=== PATIENT | female | born 1985 | race African-American/Black ===

== ENCOUNTER 2016-04-23 13:54 | Emergency (ER) | payer OTHER ==
[~2016-04-23] VITALS: Ht 157.5 cm; Wt 115.0 kg
[~2016-04-23 13:54] MED LIST: ADVIL,NUPRIN,M200 MG PO; ATIVAN1 MG PO; GLUCOPHAGE500 MG PO; LISINOPRIL20 MG PO; MEDROL DOSEPAK4 MG PO; NOHOMEMEDS; PRINIVIL20 MG PO; TRIAMCINOLONE A15 GM TP
[2016-04-23 15:17] LABS: HEMATOCRIT 40.9 % (36.0-46.0); MCH 30.3 PG (29.0-34.0); MCV 91.9 FL (83-99); PLATELET COUNT 228 K/uL (156-360); RBC DIS.WIDTH-CV 14.8 % (11.8-14.6); RBC DIS.WIDTH-SD 47.6 % (39-53); RED BLOOD COUNT 4.45 M/uL (3.80-5.20); WHITE BLOOD COUNT 14.4 K/uL (4.1-10.2)
[2016-04-23 15:28] LABS: CHLORIDE 104 mEq/L (99-109); D-DIMER ELISA 3.06 mg/L FEU (< 0.57); POTASSIUM 4.1 mEq/L (3.7-5.4); SODIUM 141 mEq/L (136-147)
[2016-04-23 15:31] LABS: GLUCOSE 232 mg/dL (70-99)
[2016-04-23 15:32] LABS: ANION GAP 9 MEQ/L (2-14); TOTAL BILIRUBIN 0.4 mg/dL (0.0-1.0)
[2016-04-23 15:34] LABS: ALKALINE PHOSPHATASE 87 IU/L (3-129); GFR ESTIMATE (CALCULATED) > 59 mL/min/
[2016-04-23 15:35] LABS: UREA NITROGEN (BUN) 6 mg/dL (9-23)
[2016-04-23 15:37] LABS: TROP-I INTERPRETATION NEGATIVE; TROPONIN-I < 0.01 ng/mL (0.0-0.30)
[2016-04-23 15:46] LABS: ADD MIUA? YES; BILIRUBIN NEGATIVE; BLOOD NEGATIVE; COLOR YELLOW ((YELLOW)); GLUCOSE (STRIP) >=500; KETONES 5; LEUKOCYTES NEGATIVE; NITRITE NEGATIVE; PROTEIN (STRIP) 100; SPECIFIC GRAVITY 1.035 (1.000-1.030); UROBILINOGEN 0.2 MG/DL (0.2-1.0)
[2016-04-23 15:52] LABS: BACTERIA RARE /HPF; EPITHELIAL CELLS 1+ /HPF; MUCUS 2+ /LPF; RED BLOOD CELLS 0-5 /HPF (0-5); WHITE BLOOD CELLS 0-5 /HPF (0-5)
[2016-04-23 16:06] LABS: QUANTITATIVE HCG < 4.0 MIU/ML
[2016-04-23 17:52] LABS: TROP-I INTERPRETATION NEGATIVE; TROPONIN-I < 0.01 ng/mL (0.0-0.30)
[2016-04-23] MEDS ORDERED: LEVAQUIN750 MG PO (20:54)
[2016-04-23] MEDS ORDERED: VENTOLIN HFA18 GM IH (21:03)
[2016-04-23 21:31] VITALS: BP 156/91
== END 2016-04-23 21:32 | disposition left against medical advice (07) ==
LOC: EME 13:54
PROVIDERS: Physician Assistant Medical
DX: J18.9 Pneumonia, unspecified organism (principal); R09.02 Hypoxemia; E11.9 Type 2 diabetes mellitus without complications; I10 Essential (primary) hypertension; F17.200 Nicotine dependence, unspecified, uncomplicated
CPT/HCPCS: 71020; 71275; 80053; 81003; 84484; 84702; 85027; 85379; 93005; 94640; 99281; 99285; J1956; J2060

== ENCOUNTER 2017-04-11 21:00 | Inpatient (IN) | payer OTHER ==
[~2017-04-11] VITALS: Ht 157.5 cm; Wt 123.0 kg
[~2017-04-11 21:00] MED LIST changes: +LEVAQUIN750 MG PO; +LISINOPRIL10 MG PO; -LISINOPRIL20 MG PO; +VENTOLIN HFA18 GM IH
[2017-04-11 21:33] LABS: HEMATOCRIT 47.1 % (36.0-46.0); HEMOGLOBIN 15.2 G/DL (11.9-15.5); MCHC 32.3 G/DL (30.0-36.0); MCV 89.9 FL (83-99); RBC DIS.WIDTH-CV 16.5 % (11.8-14.6); RBC DIS.WIDTH-SD 53.5 % (39-53); RED BLOOD COUNT 5.24 M/uL (3.80-5.20); WHITE BLOOD COUNT 10.7 K/uL (4.1-10.2)
[2017-04-11 21:44] LABS: ALBUMIN 3.7 g/dL (3.2-4.8); CHLORIDE 104 mEq/L (99-109); POTASSIUM 4.8 mEq/L (3.7-5.4); SODIUM 139 mEq/L (136-147)
[2017-04-11 21:46] LABS: GLUCOSE 168 mg/dL (70-99); TOTAL PROTEIN 6.9 g/dL (6.4-8.3)
[2017-04-11 21:48] LABS: TOTAL BILIRUBIN 0.7 mg/dL (0.0-1.0)
[2017-04-11 21:50] LABS: ALKALINE PHOSPHATASE 98 IU/L (3-129); CREATININE 0.8 mg/dL (0.6-1.3); GFR ESTIMATE (CALCULATED) > 59 mL/min/
[2017-04-11 21:51] LABS: UREA NITROGEN (BUN) 11 mg/dL (9-23)
[2017-04-11 21:52] LABS: AST (GOT) 25 IU/L (2-34)
[2017-04-11 21:53] LABS: ALT (GPT) 13 IU/L (3-49)
[2017-04-11 22:00] LABS: QUANTITATIVE HCG < 4.0 MIU/ML
[2017-04-11 22:05] LABS: APPEARANCE SL.HAZY ((CLEAR)); BILIRUBIN NEGATIVE; BLOOD NEGATIVE; COLOR YELLOW ((YELLOW)); GLUCOSE (STRIP) NEGATIVE; KETONES NEGATIVE; LEUKOCYTES NEGATIVE; NITRITE NEGATIVE; PROTEIN (STRIP) >=500; SPECIFIC GRAVITY 1.029 (1.000-1.030); UROBILINOGEN 0.2 MG/DL (0.2-1.0)
[2017-04-11 22:07] LABS: PLAT.SUFFICIENCY ADEQUATE; PLATELET COUNT 258 K/uL (156-360)
[2017-04-11 22:14] LABS: BACTERIA NONE SEEN /HPF; EPITHELIAL CELLS 2+ /HPF; MUCUS 3+ /LPF; RED BLOOD CELLS 0-5 /HPF (0-5); UCUL ADDED? NO; WHITE BLOOD CELLS 0-5 /HPF (0-5)
[2017-04-11 22:30] LABS: LIPASE 14 U/L (1.0-51.0)
[2017-04-12] MEDS ORDERED: BUPRENORPHINE HC8 MG SL (00:50)
[2017-04-12] MEDS ORDERED: CLEOCIN300 MG PO (00:51)
[2017-04-12] MEDS ORDERED: LASIX20 MG PO (00:51)
[2017-04-12] MEDS ORDERED: LEXAPRO20 MG PO (00:51)
[2017-04-12] MEDS ORDERED: VENTOLIN HFA18 GM IH (00:52)
[2017-04-12 07:10] VITALS: BP 130/82
[2017-04-12 11:44] VITALS: BP 152/87
[2017-04-12 16:35] VITALS: BP 132/68
[2017-04-12 19:30] VITALS: BP 167/89
[2017-04-13] VITALS: BP 151/100
[2017-04-13 03:52] VITALS: BP 152/74
[2017-04-13 08:04] VITALS: BP 118/74
[2017-04-13 10:08] LABS: HEMATOCRIT 41.5 % (36.0-46.0); HEMOGLOBIN 13.1 G/DL (11.9-15.5); MCH 28.8 PG (29.0-34.0); MCHC 31.6 G/DL (30.0-36.0); MCV 91.2 FL (83-99); RBC DIS.WIDTH-CV 16.3 % (11.8-14.6); RBC DIS.WIDTH-SD 53.9 % (39-53); RED BLOOD COUNT 4.55 M/uL (3.80-5.20); WHITE BLOOD COUNT 8.9 K/uL (4.1-10.2)
[2017-04-13 10:34] LABS: CHLORIDE 100 MEQ/L (99-109); CREATININE 0.7 MG/DL (0.6-1.3); GFR ESTIMATE (CALCULATED) > 59 mL/min/; GLUCOSE 183 mg/dL (70-99); POTASSIUM 3.8 MEQ/L (3.7-5.4); SODIUM 140 MEQ/L (136-147); UREA NITROGEN (BUN) 13 mg/dL (9-23)
[2017-04-13 11:08] LABS: PLAT.SUFFICIENCY ADEQUATE; PLATELET COUNT 226 K/uL (156-360)
[2017-04-13 12:09] VITALS: BP 120/72
[2017-04-13 16:59] VITALS: BP 143/89
[2017-04-13 20:08] VITALS: BP 144/68
[2017-04-14] VITALS: BP 146/89
[2017-04-14 03:18] VITALS: BP 149/85
[2017-04-14 07:58] VITALS: BP 139/73
[2017-04-14 10:56] LABS: HEPATITIS B SURFACE ANTIGEN Nonreactive
[2017-04-14 10:57] LABS: ANTI-HEPATITIS A VIRUS (IGM) Nonreactive; HEPATITIS C ANTIBODY Nonreactive
[2017-04-14 10:58] LABS: ANTI-HEPATITIS B CORE (IGM) Nonreactive; HIV-1/2 AB/AG COMBO Nonreactive
[2017-04-14 16:27] VITALS: BP 163/98
[2017-04-15] VITALS: BP 143/98
[2017-04-15 06:40] LABS: HEMATOCRIT 44.3 % (36.0-46.0); HEMOGLOBIN 13.9 G/DL (11.9-15.5); MCH 28.1 PG (29.0-34.0); MCHC 31.4 G/DL (30.0-36.0); MCV 89.5 FL (83-99); PLATELET COUNT 241 K/uL (156-360); RBC DIS.WIDTH-CV 15.8 % (11.8-14.6); RBC DIS.WIDTH-SD 51.6 % (39-53); RED BLOOD COUNT 4.95 M/uL (3.80-5.20); WHITE BLOOD COUNT 7.9 K/uL (4.1-10.2)
[2017-04-15 07:01] LABS: CHLORIDE 101 MEQ/L (99-109); POTASSIUM 3.6 MEQ/L (3.7-5.4); SODIUM 140 MEQ/L (136-147)
[2017-04-15 07:08] LABS: CREATININE 0.7 MG/DL (0.6-1.3); GFR ESTIMATE (CALCULATED) > 59 mL/min/; UREA NITROGEN (BUN) 14 mg/dL (9-23)
[2017-04-15 07:09] LABS: GLUCOSE 99 mg/dL (70-99)
[2017-04-15 08:00] VITALS: BP 140/99
[2017-04-15] MEDS ORDERED: FUROSEMIDE40 MG PO (14:26)
[2017-04-15] MEDS ORDERED: CEFDINIR300 MG PO (14:26)
[2017-04-15] MEDS ORDERED: NICOTINE PATCH1 EAC2 TD (14:26)
[2017-04-15] MEDS ORDERED: CARVEDILOL6.25 MG PO (14:26)
== END 2017-04-15 14:53 | disposition home or self-care (01) | DRG 193 ==
LOC: EME 21:00 → EDOF 04-12 04:08 → 5SOUTH 04-12 04:08 → ENRESERV 04-12 04:09 → 5SOUTH 04-12 06:16
PROVIDERS: Hospitalist; Physician Assistant
DX: J18.9 Pneumonia, unspecified organism (principal); I50.33 Acute on chronic diastolic (congestive) heart failure; I11.0 Hypertensive heart disease with heart failure; Z68.42 Body mass index [BMI] 45.0-49.9, adult; I43 Cardiomyopathy in diseases classified elsewhere; E66.01 Morbid (severe) obesity due to excess calories; E11.65 Type 2 diabetes mellitus with hyperglycemia; I31.3 Pericardial effusion (noninflammatory); R18.8 Other ascites; F11.10 Opioid abuse, uncomplicated; I44.7 Left bundle-branch block, unspecified; R09.02 Hypoxemia; R79.1 Abnormal coagulation profile; F32.9 Major depressive disorder, single episode, unspecified; Z83.3 Family history of diabetes mellitus; F17.210 Nicotine dependence, cigarettes, uncomplicated; Z91.14 Patient's other noncompliance with medication regimen; Z91.19 Patient's noncompliance with other medical treatment and regimen; Z79.899 Other long term (current) drug therapy
CPT/HCPCS: 71046; 71275; 74019; 74177; 80048; 80053; 80074; 81003; 82948; 83605; 83690; 83880; 84702; 85027; 85379; 87040; 87389; 87502; 93005; 93306; 94799; 99281; 99285; J0456; J0571; J0696; J1650; J1940; J2060; J7040

== ENCOUNTER 2017-05-19 13:37 | Emergency (ER) | payer OTHER ==
[~2017-05-19] VITALS: Ht 157.5 cm; Wt 109.0 kg
[~2017-05-19 13:37] MED LIST changes: +BUPRENORPHINE HC8 MG SL; +CARVEDILOL6.25 MG PO; +CEFDINIR300 MG PO; +CLEOCIN300 MG PO; +FUROSEMIDE40 MG PO; +LASIX20 MG PO; +LEXAPRO20 MG PO; +NICOTINE PATCH1 EAC2 TD
[2017-05-19 14:03] LABS: HEMATOCRIT 54.5 % (36.0-46.0); MCH 28.7 PG (29.0-34.0); MCV 86.9 FL (83-99); RBC DIS.WIDTH-CV 16.1 % (11.8-14.6); RBC DIS.WIDTH-SD 49.7 % (39-53); RED BLOOD COUNT 6.27 M/uL (3.80-5.20); WHITE BLOOD COUNT 11.8 K/uL (4.1-10.2)
[2017-05-19 14:25] LABS: TROP-I INTERPRETATION NEGATIVE; TROPONIN-I < 0.01 ng/mL (0.0-0.30)
[2017-05-19 14:47] LABS: PLAT.SUFFICIENCY ADEQUATE; PLATELET COUNT 190 K/uL (156-360)
[2017-05-19 15:24] LABS: CHLORIDE 97 mEq/L (99-109)
[2017-05-19 15:25] LABS: POTASSIUM 4.8 mEq/L (3.7-5.4); SODIUM 135 mEq/L (136-147)
[2017-05-19 15:26] LABS: GLUCOSE 349 mg/dL (70-99)
[2017-05-19 15:30] LABS: CREATININE 0.8 mg/dL (0.6-1.3); GFR ESTIMATE (CALCULATED) > 59 mL/min/
[2017-05-19 15:31] LABS: UREA NITROGEN (BUN) 17 mg/dL (9-23)
[2017-05-19 19:08] VITALS: BP 164/99
== END 2017-05-19 19:09 | disposition home or self-care (01) ==
LOC: EME 13:37
PROVIDERS: Nurse Practitioner Family
DX: R07.9 Chest pain, unspecified (principal); I11.0 Hypertensive heart disease with heart failure; I50.9 Heart failure, unspecified; E11.9 Type 2 diabetes mellitus without complications; F17.200 Nicotine dependence, unspecified, uncomplicated
CPT/HCPCS: 71046; 71275; 80048; 84484; 85027; 85379; 93005; 99281; 99285